=== PATIENT | male | born 1970 | race Native Hawaiian/Other Pacific Islander ===

== ENCOUNTER 2022-07-13 15:04 | Emergency (ER) | payer OTHER ==
[~2022-07-13] VITALS: Ht 180.3 cm; Wt 56.7 kg
[2022-07-13 15:10] VITALS: TEMP 97.7
[2022-07-13 15:37] LABS: POTASSIUM 3.3 mmol/L (3.6-5.2)
[2022-07-13 15:41] LABS: PARTIAL THROMBOPLASTIN TIME 32.6 SECONDS (23.9-36.7)
[2022-07-13 15:59] LABS: PLATELET COUNT 134 K/uL (142-355)
[2022-07-13 16:20] VITALS: BP 148/95
== END 2022-07-13 20:30 | disposition short-term general hospital (02) ==
LOC: ED 15:04
PROVIDERS: Emergency Medicine
DX: R17 Unspecified jaundice (principal); K70.10 Alcoholic hepatitis without ascites; F10.129 Alcohol abuse with intoxication, unspecified; E87.1 Hypo-osmolality and hyponatremia; F17.210 Nicotine dependence, cigarettes, uncomplicated; R41.82 Altered mental status, unspecified
CPT/HCPCS: 80053; 80307; 80320; 82150; 82550; 83690; 83880; 84484; 85007; 85027; 85610; 85730; 96360; 96361; 96372; 99284; J2060